=== PATIENT | female | born 1995 | race Caucasian/White ===

== ENCOUNTER 2016-11-21 18:13 | Emergency (ER) | payer SELFPAY ==
[2016-11-21] MEDS ORDERED: Sodium Chloride 0.9% 1,000 ML PRIMARY IV ONE (18:37)
[2016-11-21] MEDS ORDERED: NORMAL SALINE 10 ML SYRINGE FLUSH IVP PRN (18:37)
[2016-11-21] MEDS ORDERED: ONDANSETRON 4 MG/2 ML VIAL IVP ONE (18:52)
[2016-11-21 18:58] LABS: BASOPHILS # (AUTO) 0.02 10*3/UL; BASOPHILS % (AUTO) 0.2 % (0-1); BLOOD UREA NITROGEN 10 mg/dL (7-22); BUN/CREATININE RATIO 16.66 (6-20); CALCIUM 9.6 mg/dL (8.7-10.7); EOSINOPHILS # (AUTO) 0.02 10*3/UL; EOSINOPHILS % (AUTO) 0.2 % (0-8); EST GLOMERULAR FILTRATION > 60 (>60 ml/min/1.73m(2)); HEMATOCRIT 43.4 % (37.0-47.0); HEMOGLOBIN 14.9 g/dL (12.0-16.0); LYMPHOCYTES # (AUTO) 0.89 10*3/uL; MEAN CORPUSCULAR HEMOGLOBIN 29.4 PG (27-31); MEAN CORPUSCULAR HGB CONC 34.3 g/dL (33-37); MEAN CORPUSCULAR VOLUME 85.6 FL (81-99); MEAN PLATELET VOLUME 9.4 FL (7.4-12.2); MONOCYTES # (AUTO) 0.41 10*3/UL (0.3-0.8); MONOCYTES % (AUTO) 4.1 % (5-15); NEUTROPHILS # (AUTO) 8.54 10*3/UL; NEUTROPHILS % (AUTO) 86.3 % (50-80); RED BLOOD COUNT 5.07 10^6/uL (4.20-5.40); SERUM ALBUMIN 4.7 g/dL (3.5-4.8)
[2016-11-21 18:59] LABS: PLATELET MORPHOLOGY COMMENT NORMAL MORPHOLOGY (NORM); RBC MORPHOLOGY COMMENT NORMAL MORPHOLOGY (NORM); WBC MORPHOLOGY COMMENT NORMAL MORPHOLOGY (NORM)
[2016-11-21 19:27] VITALS: RESP 18; TEMP 97.8
[2016-11-21 20:04] LABS: BILIRUBIN,URINE NEGATIVE (NEG); COLOR,URINE YELLOW; GLUCOSE, URINE (UA) NEGATIVE (NEG); NITRATE,URINE NEGATIVE (NEG); OCCULT BLOOD,URINE NEGATIVE (NEG); PH,URINE 7.5 (5.0-8.5); PROTEIN,URINE NEGATIVE (NEG); UROBILINOGEN,URINE 0.2 EU/dL (0.2)
--- NOTE | 2016-11-21 20:29 | DI ---
CT HEAD W/O CONTRAST,11/21/2016 6:39 PM: Clinical History: Trauma Previous Exam: None at this facility. Findings: Multiple helically acquired CT images are obtained through the brain without contrast, and demonstrat e normal, symmetric ventricles and other CSF containing spaces. There is no mass, hemorrhage or midli ne shift. Surrounding soft tissue and osseous structures are unremarkable. Cervical spine: Multiple helically acquired CT images are obtained through the cervical spine without contrast. Sagittal and coronal reconstructions are obtained, and demonstrate anatomic alignment with out fractures. There is mild loss of intervertebral disc height at the C2/3 level. Prevertebral soft tissues are unremarkable. The lung apices are clear. Multiple cervical lymph nodes are noted as well. Impression: No acute intracranial pathology. Normal cervical spine.
--- NOTE | 2016-11-21 20:29 | DI ---
CT ABD W/CN AND PELVIS W/CN,11/21/2016 6:38 PM: Clinical History: Trauma Previous Exam: None at this facility. Findings: Multiple helically acquired CT images are obtained through the abdomen and pelvis following the admin istration of IV contrast. Lung bases are clear. There is mild diffuse fatty infiltration of the liver which is otherwise normal . The gallbladder is normal. The spleen, adrenals, pancreas and kidneys are unremarkable. There is no m esenteric nor retroperitoneal lymphadenopathy. The uterus and ovaries are unremarkable. The urinary b ladder is also unremarkable. Skeletal structures are within normal limits. The appendix is normal. Impression: No acute intra-abdominal pathology.
[2016-11-21 20:44] LABS: CLARITY,URINE CLEAR (CLEAR)
[2016-11-21 20:45] LABS: BACTERIA,URINE RARE; SQUAMOUS EPITHELIAL CELL,UR RARE; URINE SAMPLE TYPE CLEAN CATCH URINE
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
== END 2016-11-21 21:30 | disposition home or self-care (01) ==
LOC: ER 18:13
DX: S50.811A Abrasion of right forearm, initial encounter (principal); S80.811A Abrasion, right lower leg, initial encounter; M54.2 Cervicalgia; R10.84 Generalized abdominal pain; R11.0 Nausea; R51 Headache; V48.5XXA Car driver injured in noncollision transport accident in traffic accident, initial encounter
CPT/HCPCS: 70450; 72125; 74177; 80053; 81001; 81003; 84703; 85025; 96374; 99283; J2405; J7030